=== PATIENT | male | born 1950 | race Hispanic/Latino ===

== ENCOUNTER 2024-03-14 07:18 | Day surgery (SDC) | payer OTHER, MEDICARE ==
--- NOTE | 2024-03-12 12:54 | EKG ---
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
[2024-03-12 13:08] LABS: BASOPHILS # (AUTO) 0.04 K/uL (0.00-0.20); BASOPHILS % (AUTO) 0.7 % (0.0-5.0); EOSINOPHILS # (AUTO) 0.05 K/uL (0.00-0.70); EOSINOPHILS % (AUTO) 0.9 % (0.0-8.0); HEMATOCRIT 38.9 % (42-54); IMMATURE GRANULOCYTE ABSOLUTE 0.02 K/uL (0-1); LYMPHOCYTES # (AUTO) 1.6 K/uL (1.0-4.8); LYMPHOCYTES % (AUTO) 27.9 % (21.0-51.0); MEAN CORPUSCULAR HEMOGLOBIN 30.5 pg (27.0-33.0); MEAN CORPUSCULAR HGB CONC 32.4 g/dL (32.0-36.0); MEAN CORPUSCULAR VOLUME 94.2 fL (79-99); MONOCYTES # (AUTO) 0.5 K/uL (0.1-1.0); MONOCYTES % (AUTO) 8.1 % (3.0-13.0); NEUTROPHILS # (AUTO) 3.5 K/uL (1.8-7.7); PLATELET COUNT (AUTO) 143 K/uL (130-400); RED BLOOD CELL COUNT(AUTO) 4.13 MIL/uL (4.50-6.20); RED CELL DISTRIBUTION WIDTH 13.1 % (11.0-15.5); WHITE BLOOD COUNT (AUTO) 5.7 K/uL (4.8-10.8)
[2024-03-12 13:20] LABS: CREATININE 0.9 mg/dL (0.5-1.3); POTASSIUM 4.1 mmol/L (3.5-5.1)
[2024-03-12 13:23] VITALS: BP 114/70; PULSE 75; RESP 18; TEMP 97.2
[~2024-03-14] VITALS: Ht 162.6 cm; Wt 74.8 kg
[2024-03-14] VITALS (22 sets, daily range): BP systolic 90–115; BP diastolic 50–77; PULSE 75–123; RESP 12–20; TEMP 97.2–98.1
[2024-03-14] MEDS: GENTAmicin 80 MG/NS 100 ML PB 100 ML IV ONE (07:04)
[2024-03-14] MEDS: cefTRIAXone 1G VIAL ONE (07:04)
[~2024-03-14 07:18] MED LIST: ATOR20TA65 PO; DONE10TA43 PO; FINA5TAB41 PO; GABA-529 PO; OMEP40CA21 PO; TAMS-1 PO
[2024-03-14] MEDS ORDERED: proPOFol 10 MG/ML 20ML VIAL IV ONE (08:50)
[2024-03-14] MEDS ORDERED: FENTanyl CITRate PF 50 MCG/1 ML 2ML VIAL ONE (08:51)
[2024-03-14] MEDS ORDERED: MIDAZOLAM HCL 1 MG/ML 2ML VIAL ONE (08:51)
[2024-03-14] MEDS: LACTATED RINGERS 1000ML 1,000 ML IV ONE (09:05)
[2024-03-14] MEDS ORDERED: GLYCOPYRROLATE 0.2 MG/ML 5 ML VIAL ONE (09:09)
[2024-03-14] MEDS ORDERED: ePHEDrine SULFate 50 MG/ML AMPULE ONE (09:11)
[2024-03-14] MEDS: LIDOCAINE HCL 2% PF 20 ML JEL DISP.SYRIN MM ONE (09:20)
--- NOTE | 2024-03-14 10:24 | OP ---
DATE OF PROCEDURE: 03/14/2024 PREOPERATIVE DIAGNOSES: Elevated prostate-specific antigen. History of high-grade prostatic intraepithelial neoplasia. POSTOPERATIVE DIAGNOSES: Elevated prostate-specific antigen. History of high-grade prostatic intraepithelial neoplasia. PROCEDURE PERFORMED: Transrectal ultrasound with prostate needle biopsy. ANESTHESIA: General endotracheal anesthesia. SURGEON: Adriana Sloan MD PREOPERATIVE INDICATIONS: This is a 73-year-old gentleman who is having an elevation of his PSA while on finasteride. The patient had a prior prostate needle biopsy in 2017, which revealed high-grade PIN at the right apex and FLEX at the left apex. The patient empties well on a combination of finasteride and tamsulosin; however, his PSA began to increase and is now 8.6 with a 9% free fraction. He returns today for repeat transrectal ultrasound prostate needle biopsy. The patient does have some cognitive difficulties and elected for this to be done under anesthesia. Preoperatively, he was started on Augmentin 875 mg p.o. b.i.d. the day prior to the procedure and received Rocephin 1 g and gentamicin 80 mg perioperatively. DESCRIPTION OF PROCEDURE: The patient was brought to the operating room and placed in the supine position. Following adequate general endotracheal anesthesia, he was then repositioned in the left lateral decubitus position. He was held in a knees up or position and 2% lidocaine jelly was introduced into his rectum. Following this, a transrectal ultrasound probe was positioned and ultrasonography was performed revealing a prostate volume of 46.5 grams. The patient then underwent systematic biopsies of his prostate gland in 12 locations in the standard fashion. One extra core was removed from the left mid medial for a total of 13 cores obtained. He tolerated the procedure well and there were no complications. He was transported to the recovery room in stable condition. He will be discharged to home today to continue his Augmentin for today and tomorrow. He is to follow up in the office in 10-14 days in the office to review his path report. All this was discussed with his sister who brought him to the hospital today. TID: [id number] RECEIPT: [id number]
[2024-03-14 10:34] LABS: CREATININE 0.8 mg/dL (0.5-1.3); POTASSIUM 3.8 mmol/L (3.5-5.1)
--- NOTE | 2024-03-14 10:54 | EKG ---
[facility] Test Date: 2024-03-14 Test Time: 09:58:14 Pat Name: CRISS DIAS Department: [facility] Room: [facility] 12 Gender: M Seconds Grader: [id number] : 1950 Requested By: NICHELLE SOSA Order Number: [id number] Reading MD: Chapo Chairez Measurements Intervals [place] Rate: 120 P: -86 DC: 97 QRS: -14 QRSD: 85 T: 76 QT: 365 QTc: 516 Interpretive Statements Sinus tachycardia with irregular rate Low voltage, extremity leads Prolonged QT interval Compared to ECG 03/12/2024 13:42:15 Prolonged QT interval now present Sinus rhythm no longer present Electronically Signed On 03-14-2024 16:15:59 PRODUCT ASSEMBLER by Chapo Chairez Please click the below link to view image of tracing.
--- NOTE | 2024-03-14 11:00 | NUR ---
PACU EVENTS: 934: PT ARRIVED TO PACU S/P TRUS W/BX BY DR. WOODSON UNDER GENERAL ANESTHESIA. REPORT RECEIVED FROM Keyon SOSA CRNA - PT. HOOKED TO MONITORS, VSS, NO S/S DISTRESS. 954: Keyon SOSA CRNA NOTIFIED PT. W/NOTED EKG CHANGES, IRREGULAR SINUS TACHYCARDIA W/INTERMITTENT PVCS, PT NOW HYPOTENSIVE SBP 90S. PRE-OP EKG SR 60S. PATIENT ASYMPTOMATIC, DENIES CP, SOB. ORDER RECEIVED FOR 12-LEAD EKG STAT, GEAR SHAVER SET UP OPERATOR NOTIFIED. 1005: 12-LEAD EKG COMPLETE, Keyon SOSA CRNA NOTIFIED READING OF IRREGULAR SINUS TACHYCARDIA WITH PROLONGED QT. WILL COME TO BEDSIDE. 1010: Keyon SOSA CRNA AT BEDSIDE, NEWS ANALYST ADMINISTERED ESMOLOL 30MG IV. OK TO GIVE PT IVF BOLUS OF 1000ML LR IN PACU, DRAW STAT BMP, AND NOTIFY DR. WOODSON. 1015: PT CONTINUES WITH IRREGULAR SINUS TACHYCARDIA, STAT BMP SENT TO LAB. 1020: PT. NOTED IN NORMAL SINUS RHYTHM, RATE 80S. SBP IMPROVED TO 100S. Keyon SOSA CRNA AWARE. 1040: DR. WOODSON NOTIFIED OF EVENTS IN PACU, ALONG WITH INTERVENTIONS & LAB RESULTS. OK TO DC PT HOME PLANNED, NO FURTHER ORDERS AT THIS TIME. 1100: PATIENT REMAINS NSR, RATE 80S. VSS, NO S/S DISTRESS. DENIES CP OR SOB. PT. TRANSFERRED TO DAY PT IN STABLE CONDITION, REPORT TO Angel Luis POWERS RN. OK'ED PER Keyon SOSA CRNA.
--- NOTE | 2024-03-14 11:18 | HMCIMG ---
US TRANSRECTAL REASON: BPH. COMPARISON: None TECHNIQUE: Transrectal ultrasound study was performed. FINDINGS: Please see procedure report by referring physician. IMPRESSION: Intraoperative films.
--- NOTE | 2024-03-14 11:50 | NUR ---
PT SISTER AT BEDSIDE UPON ARRIVAL, VSS, PT DENIES ALL C/O OR NECESSITY OTHER THAN URINAL FOR VOID. URINE LIGHT KOGN, 1000ML IVF FLUID COMPLETED, ORAL FLUIDS ENCOURAGED AND STRESSED TO SISTER. SISTER REPORTS PT HAS DEMENTIA, NO DEFICITS NOTED AT PRESENT, PT ABLE TO CONFIRM D/C INSTRUCTIONS AND HOME CARE. PIV HL REMOVED W TIP INTACT, ALL BELONGINGS MAINTAINED PER SISTER, PT SELF DRESS, ANXIOUS TO GO HOME. NO DISTRESS VOICED OR NOTED. W/C DISCHARGE TO [facility] AT 1150
== END 2024-03-14 11:50 | disposition home or self-care (01) ==
LOC: DAH 07:18
PROVIDERS: ATTEND Urology
DX: R97.20 Elevated prostate specific antigen [PSA] (principal); N41.1 Chronic prostatitis; N41.0 Acute prostatitis; C61 Malignant neoplasm of prostate; N42.31 Prostatic intraepithelial neoplasia; I10 Essential (primary) hypertension; I25.10 Atherosclerotic heart disease of native coronary artery without angina pectoris; Z79.899 Other long term (current) drug therapy
CPT/HCPCS: 80048 ×2; 85025; 36415 ×2; 93005 ×2; 55700; 88305; 76872; A6260; A4663; J7120; J3010; J3490 ×2; J0696; J2250; J2704; J1580; A4215 ×2; A4649; A4213; A4222; A4221; A4216; A4510; A4223 ×2; A4600